=== PATIENT | male | born 2000 | race Caucasian/White ===

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

== ENCOUNTER 2020-12-22 19:09 | Emergency (ER) | payer BC ==
[~2020-12-22] VITALS: Ht 177 cm; Wt 81.0 kg
[2020-12-22] MEDS ORDERED: ONDANSETRON 4 MG (ZOFRAN) ORAL DISSOLVE TAB PO STA (19:46)
--- NOTE | 2020-12-22 19:50 | ED General ---
General Chief Complaint: General Problems/Pain Stated Complaint: POSS DEHYDRATION / HASN'T DRANK WATER / SHAKEY Nursing Triage Note: PT STATES HE WENT OT EAT WITH FRIENDS ABOUT 1830, STARTED FEELING NAUSOUS AND THREW UP. STATES HE THIINKS HE'S DEHYDRATED. Nursing Sepsis Screen: No Definite Risk Source of Information: Patient Exam Limitations: No Limitations History of Present Illness Date Seen by Provider: Dec 22, 2020 Time Seen by Provider: 19:25 Initial Comments This is a well appearing 20 yo male who presented to the ED via POV with c/o of nausea/vomiting/ and shaking that started around 1829 while he was at a [employer] restaurant with friends. States he felt fine before and symptom came on suddenly. States he is concerned he is dehydrated, eventhough he was able to eat/drink normally prior to event. Noted his grandpa has history of diabetes. Denies fever, chills, cough, shortness of breath, abdominal pain. Reports some mild nausea at this time. Allergies and Home Medications Allergies Coded Allergies: No Known Drug Allergies (Unverified , 12/22/20) Home Medications P-Ephed Hcl/Fexofenadine Hcl 1 Tab Tab, 1 EACH PO BID, (Reported) Patient Home Medication List Home Medication List Reviewed: Yes Review of Systems Review of Systems Constitutional: see HPI EENTM: no symptoms reported Respiratory: no symptoms reported Cardiovascular: no symptoms reported Gastrointestinal: see HPI Genitourinary: no symptoms reported Musculoskeletal: no symptoms reported Skin: no symptoms reported Psychiatric/Neurological: No Symptoms Reported Hematologic/Lymphatic: No Symptoms Reported Immunological/Allergic: no symptoms reported Past Vcdsbet-Lifuix-Lhpwog Hx Patient Social History Alcohol Use: Occasionally Uses Smoking Status: Current Someday Smoker Type Used: Electronic/Vapor Recent Infectious Disease Expo: No Recent Hopitalizations: No Seasonal Allergies Seasonal Allergies: Yes Past Medical History Surgeries: Yes (RT SHOULDER) Adenoidectomy, Orthopedic, Tonsillectomy Respiratory: Yes Asthma Cardiac: No Neurological: Yes (NF1) Genitourinary: No Gastrointestinal: No Musculoskeletal: No Endocrine: No HEENT: No Cancer: No Psychosocial: No Integumentary: No Physical Exam Vital Signs Vital Signs - First Documented 12/22/20 19:17 Temp 36.2 Pulse 93 Resp 18 B/P (MAP) 139/97 (111) Pulse Ox 97 O2 Delivery Room Air Capillary Refill : Less Than 3 Seconds Height, Weight, BMI Height: 5'10.00" Weight: 170lbs. 0.0oz. [id number]; 25.00 BMI Method:Stated General Appearance: No Apparent Distress, WD/WN Eyes: Bilateral Eye Normal Inspection HEENT: PERRL/EOMI, Normal ENT Inspection Neck: Full Range of Motion, Normal Inspection Respiratory: Lungs Clear, Normal Breath Sounds Cardiovascular: Regular Rate, Rhythm, No Murmur Gastrointestinal: Normal Bowel Sounds, Non Tender, Soft Extremity: Normal Inspection, Normal Range of Motion Neurologic/Psychiatric: Alert, Oriented x3, No Motor/Sensory Deficits, Normal Mood/Affect Skin: Normal Color, Warm/Dry Progress/Results/Core Measures Suspected Sepsis Recent Fever Within 48 Hours: No Infection Criteria Present: None New/Unexplained Altered Menta: No Sepsis Screen: No Definite Risk SIRS Temperature: Pulse: 93 Respiratory Rate: 18 Blood Pressure 139 /97 Mean: 111 Results/Orders Lab Results Laboratory Tests Test 12/22/20 19:30 Range/Units Glucometer 107 70-110 MG/DL My Orders Orders - LISA JOHNSON [employer] Accucheck Stat ONCE (12/22/20 19:26) Ondansetron Oral Dissolve Tab (Zofran (12/22/20 19:46) Rx-Ondansetron Po (Rx-Zofran Po) (12/22/20 19:52) Vital Signs/I&O 12/22/20 12/22/20 19:17 20:23 Temp 36.2 36.2 Pulse 93 93 Resp 18 18 B/P (MAP) 139/97 (111) 139/97 (111) Pulse Ox 97 97 O2 Delivery Room Air Room Air Capillary Refill : Less Than 3 Seconds Blood Pressure Mean: 111 Point of Care Testing Finger Stick Blood Glucose: 107 Blood Glucose Action Taken: LISA INFORMED Progress Note : Progress Note With sudden onset of symptoms this likely represents a viral gastroenteritis. Will give Zofran and if improvement noted will send home rx. Reported improvement with Zofran. Rx take home pack sent with patient. Reviewed discharge POC and he is agreeable with plan. Departure Impression Primary Impression: Viral gastroenteritis Disposition: HOME, SELF-CARE Condition: Improved Departure-Patient Inst. Decision time for Depature: 20:20 Referrals: ROSE CH MD (PCP/Family) Primary Care Physician Patient Instructions: Viral Gastroenteritis Add. Discharge Instructions: Plan: 1. Discharge home. 2. Take Zofran 4mg PO every 6 hours as needed for nausea. 3. Drink clear liquids and advance diet to bland soft foods. 4. Return for any new or worsening symptoms. All discharge instructions reviewed with patient and/or family. Voiced understanding. LISA JOHNSON [employer]INTER Dec 22, 2020 19:50
[2020-12-22] MEDS ORDERED: RX-ONDANSETRON 4 MG ODT (ZOFRAN) PPK #4 PO STA (19:52)
[2020-12-22 20:23] VITALS: BP 139/97
== END 2020-12-22 20:22 | disposition home or self-care (01) ==
LOC: EDUNIT# 19:09 → ER 19:11
DX: A08.4 Viral intestinal infection, unspecified (principal); F17.290 Nicotine dependence, other tobacco product, uncomplicated
CPT/HCPCS: 82962